=== PATIENT | female | born 1940 | race Caucasian/White ===

== ENCOUNTER 2020-07-22 17:55 | Inpatient (IN) ==
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
[2020-07-22 18:47] LABS: Hemoglobin 16.9 gm/dL (12.5-16.0); Mean Cell Volume 91.9 fl (78-100); Mean Corpuscular Hemoglobin 30.5 pg (27-31); Mean Corpuscular Hgb Conc 33.1 g/dl (32-36); Mean Platelet Volume 9.1 fl (8-12.5); Platelet Count 184 K/mm3 (150-450); Red Blood Count 5.55 M/mm3 (4.2-5.4); Red Cell Distribution Width 12.9 % (11.5-14.0); White Blood Count 17.3 K/mm3 (4.0-10.5)
[2020-07-22 18:51] LABS: Urine Bilirubin Negative (NEGATIVE); Urine Ketone 15 mg/dL (NEGATIVE); Urine Nitrite Negative (NEGATIVE); Urine Protein 15 mg/dL (NEGATIVE); Urine Specific Gravity >=1.030 SP.GR. (1.005-1.010); Urine Urobilinogen Normal (NORMAL)
[2020-07-22 18:56] LABS: Total Cells Counted 100
[2020-07-22 19:02] LABS: Urine Appearance Slightly Cloudy (CLEAR); Urine Bacteria TRACE; Urine Blood 5 /ul (NEGATIVE); Urine Color Yellow; Urine Mucus Many - 3+; Urine WBC 0-5 /hpf (0-5)
[2020-07-22 19:04] LABS: Troponin I Less than 0.017 ng/mL (0.00-0.10)
[2020-07-22 19:07] LABS: ALT 18 U/L (19-67); AST 17 U/L (0-48); Albumin * 3.7 gm/dl (3.4-5.0); Alkaline Phosphatase * 66 U/L (50-170); Anion Gap 15.3 mmol/L (6.8-13.8); BUN/Creatinine Ratio 23.4 (9.0-21.6); Bilirubin, Total 1.3 mg/dL (0.0-1.1); Blood Urea Nitrogen 15 mg/dL (3-23); CK Total * 225 U/L (0-259); Ca. Corrected For Albumin 8.9 mg/dL (8.4-10.2); Carbon Dioxide 21.5 mmol/L (24-32.6); Chloride 104 mmol/L (97-106); Glucose * 148 mg/dL (70-110); Lipase 69 U/L (73-393); Potassium 3.8 mmol/L (3.4-4.6); Sodium 137 mmol/L (132-142); TSH * 0.895 uIU/mL (0.358-3.74); Total Protein 7.2 gm/dL (6.2-8.2)
[2020-07-22 19:08] LABS: Cocaine Ur Negative (NEGATIVE); Urine Barbiturate Negative (NEGATIVE); Urine Benzodiazepines Negative (NEGATIVE); Urine Opiates Negative (NEGATIVE); Urine PCP Negative (NEGATIVE); Urine THC Negative (NEGATIVE)
[2020-07-22 19:24] LABS: Atypical (Reactive) Lymph 1 % (0-2); Band 4 % (0-2.0); Lymphocyte 3 % (20-51); Monocyte 6 % (0-9); Neutrophil 86 % (42-75); Neutrophil # 14.9 K/mm3 (1.3-6.0)
[2020-07-22 19:25] LABS: Platelet Estimate Normal (NORMAL); RBC Morphology Normal (NORMAL)
[2020-07-22] MEDS ORDERED: CLOPIDOGREL BISULFATE 75 MG TABLET PO STA (20:39)
[2020-07-22] MEDS ORDERED: ASPIRIN 81 MG TAB.CHEW PO ONE (20:39)
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
[2020-07-23] MEDS: POTASSIUM CHLORIDE 20 MEQ in DEXTROSE 5%-NORMAL SALINE 990 ML IV SCH (09:37)
[2020-07-23] MEDS ORDERED: FLU VACC QS2020-21(6MOS UP)/PF 60 MCG/0.5 ML SYRINGE IM ONE (10:00)
[2020-07-24] MEDS: POTASSIUM CHLORIDE 20 MEQ in DEXTROSE 5%-NORMAL SALINE 990 ML IV SCH ×2 (01:06→16:46)
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
[2020-07-24] MEDS: ASPIRIN 81 MG TABLET.DR PO SCH (13:35)
[2020-07-24] MEDS: CLOPIDOGREL BISULFATE 75 MG TABLET PO SCH (13:35)
[2020-07-25 07:12] LABS: Albumin * 2.8 gm/dl (3.4-5.0); Anion Gap 11.2 mmol/L (6.8-13.8); BUN/Creatinine Ratio 17.3 (9.0-21.6); Ca. Corrected For Albumin 9.2 mg/dL (8.4-10.2); Calcium * 8.6 mg/dL (7.9-10.9); Carbon Dioxide 23.4 mmol/L (24-32.6); Potassium 3.6 mmol/L (3.4-4.6); Total Protein 6.1 gm/dL (6.2-8.2)
[2020-07-25] MEDS: POTASSIUM CHLORIDE 20 MEQ in DEXTROSE 5%-NORMAL SALINE 990 ML IV SCH (08:15)
[2020-07-25] MEDS: ASPIRIN 81 MG TABLET.DR PO SCH (09:00)
[2020-07-25] MEDS: CLOPIDOGREL BISULFATE 75 MG TABLET PO SCH (09:00)
--- NOTE | 2020-07-25 11:46 | PN ---
Subjective - Date and Time Seen Date: 07/25/20 Time: 09:30 Subjective Narrative: No significant change. She had difficulty swallowing a mechanical soft diet this morning. Objective - Review of Systems Generalized/Overall Review: Denies: Fever EENTM: Reports: Other - difficulty swallowing Respiratory: Denies: Shortness of Breath Cardiac: Denies: Chest Pain, Edema Abdominal: Reports: No Symptoms Reported Genitourinary Symptoms: Reports: No Symptoms Reported Neurological: Reports: Weakness - right sided - Vitals Vitals: Last Vital Signs Temp 36.9 C 07/25/20 10:39 Pulse 64 07/25/20 10:39 Resp 18 07/25/20 10:39 BP 110/68 07/25/20 10:39 Pulse Ox 92 L 07/25/20 01:42 - Abnormal Lab Findings Abnormal Lab Findings: Abnormal Lab Results 07/25/20 Range/Units 06:45 Carbon Dioxide 23.4 L (24-32.6) mmol/L Random Glucose 139 H (70-110) mg/dL Total Bilirubin 2.0 H (0.0-1.1) mg/dL Total Protein 6.1 L (6.2-8.2) gm/dL Albumin 2.8 L (3.4-5.0) gm/dl - Exam Constitutional: Present: Alert, Cooperative, Other - left scleral injection. sitting up in chair, Elderly Respiratory: Present: lungs clear, normal breath sounds Cardiovascular/Chest: Present: regular rate, rhythm Extremity: Absent: lower extremity edema Neurologic: Present: facial droop - right, motor weakness - right arm, other - speech very slurred, but somewhat improved from yesterday Eye contact: Present: good eye contact Assessment/Plan Plan Narrative: Would like to obtain an MRI to see the extent of her CVA, but unable to get info from family regarding potential implanted medical devices or clips that may interfere. Discussed with robotic technician, and they would need this info to obtain the scan. Will not obtain full body xrays to look for metal. The info from the MRI would let me know the extent, but will not filter changer. Continue aspirin, plavix, and will add 20 mg atorvastatin. She will require placement after DC, as her neurologic deficits are too much for her to live alone. She has dysphagia, some of which is chronic after a surgery, dysphasia, and limited use of her right arm. Continue speech therapy, PT, OT. - Problems/Diagnosis (1) Cerebrovascular accident Problem: Acute Qualifiers: Precerebral and cerebral artery: middle cerebral artery Laterality of affected vessel: left (2) Right sided weakness Problem: Acute (3) Dysphagia Problem: Chronic
[2020-07-25] MEDS: ROSUVASTATIN CALCIUM 20 MG TABLET PO SCH (20:08)
[2020-07-26] MEDS: POTASSIUM CHLORIDE 20 MEQ in DEXTROSE 5%-NORMAL SALINE 990 ML IV SCH (00:20)
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
[2020-07-26] MEDS: CLOPIDOGREL BISULFATE 75 MG TABLET PO SCH (08:59)
[2020-07-26] MEDS: ASPIRIN 81 MG TABLET.DR PO SCH (08:59)
[2020-07-26] MEDS: ROSUVASTATIN CALCIUM 20 MG TABLET PO SCH (20:36)
[2020-07-27] MEDS: CLOPIDOGREL BISULFATE 75 MG TABLET PO SCH (08:48)
[2020-07-27] MEDS: ASPIRIN 81 MG TABLET.DR PO SCH (08:48)
--- NOTE | 2020-07-27 09:26 | DS ---
(1) Cerebrovascular accident Problem: Acute Qualifiers: Precerebral and cerebral artery: middle cerebral artery Laterality of affected vessel: left (2) Right sided weakness Problem: Acute (3) Dysphagia Problem: Chronic Date of Discharge:: 07/27/20 Hospital Course: Patient with unknown past medical history was found down and brought to the ER, where CT imaging showed "Loss of diego-white differentiation at the left insula and left lentiform nucleus consistent with an acute left MCA vascular territory infarct." Offered transfer to stroke center, but family declined per the ERP. She has left-sided facial droop and right-sided arm and leg weakness. She was unable to swallow in the ER. Lab work shows an elevated white blood cell count of 17.3. CK was not elevated. Renal function is normal. Urine negative for leukocyte esterase or nitrates, culture pending. UDS negative, Covid negative. Vitals have been normal. Blood pressure initially 180/79, currently 147/68. She reportedly smokes 2 packs a day and drinks alcohol daily. Ammonia level was normal. Would like to obtain an MRI to visualize the extent of her CVA, but we do not know if she has MRI compatible metal devices. This will not change management specialist, however. She does appear to be regaining some strength and function in her right arm, and speech is slightly more clear, but still slurred. She is right handed. Speech eval done, which recommended mechanical soft diet and nectar thick liquids, but she had difficulty with the mechanical soft diet. She is swallowing a pureed diet. She lives alone, and is not able to care for herself since her stroke. She does not have family that lives close. Family reports she does not usually go to physicians, drinks alcohol daily, and smokes 2 ppd. She did not show signs of withdrawal during her stay. Family friend states that the patient's son of leukemia about 7 years ago, and she has been significantly depressed since then. This friend also states that Christina had some swallowing difficulty at baseline, after a throat surgery. Continue aspirin, plavix, and rosuvastatin. She is accepted at [facility] inpatient rehab. Procedures Performed: none Results and Findings: Pending Mircobiology Results 07/22/20 18:42 Blood Blood Culture - Preliminary NO GROWTH AFTER 48 HOURS 07/22/20 18:40 Blood Blood Culture - Preliminary NO GROWTH AFTER 48 HOURS Lab Pending Results 07/22/20 18:00: Urine Color Yellow, Urine Appearance Slightly cloudy, Urine pH 6.0, Ur Specific [place] >=1.030, Urine Protein 15 H, Urine Glucose (UA) Negative, Urine Ketones 15, Urine Blood 5 H, Urine Nitrate Negative, Urine Bilirubin Negative, Prot Sulfosalicylic Acd 1+, Urine Urobilinogen Normal, Ur Leukocyte Esterase Negative, Urine RBC 5-10 H, Urine WBC 0-5, Ur Epithelial Cells 0-5, Urine Bacteria Trace, Urine Mucus Many - 3+ H, Urine Culture Comments Culture to follow 07/22/20 18:00: Urine Opiates Screen Negative, Barbiturate Screen Negative, Ur Phencyclidine Scrn Negative, Urine Amphetamine Negative, U Benzodiazepines Scrn Negative, Urine Cocaine Screen Negative, Urine Marijuana (THC) Negative 07/22/20 18:31: SARS-CoV-2 (PCR) Not detected 07/22/20 18:40: WBC 17.3 H, RBC 5.55 H, Hgb 16.9 H, Hct 51.0 H, MCV 91.9, MCH 30.5, MCHC 33.1, RDW 12.9, Plt Count 184, MPV 9.1, Neutrophils % (Manual) 86 H, Band Neuts % (Manual) 4 H, Lymphocytes % (Manual) 3 L, Monocytes % (Manual) 6, Neutrophils # (Manual) 14.9 H, Lymphocytes # (Manual) 0.5 L, Monocytes # (Manual) 1.0, Atypic/Reactive Lymphs 1, Platelet Estimate Normal, RBC Morphology Normal 07/22/20 18:40: Sodium 137, Plasma Sodium 138, Potassium 3.8, Chloride 104, Carbon Dioxide 21.5 L, Anion Gap 15.3 H, BUN 15, Creatinine 0.64, Est GFR (Non- Af Amer) 96, BUN/Creatinine Ratio 23.4 H, Random Glucose 148 H, Calcium 9.0, Calcium Adj for Albumin 8.9, Total Bilirubin 1.3 H, AST 17, ALT 18 L, Alkaline Phosphatase 66, Creatine Kinase 225, Troponin I Less than 0.017, Total Protein 7.2, Albumin 3.7, Lipase 69 L, TSH 0.895, Acetaminophen Less than 0.2 L, Ethyl Alcohol Less than 3.0 07/22/20 18:40: Lactic Acid, Venous 1.7 07/22/20 18:40: Ammonia Less than 17.0 07/25/20 06:45: Sodium 136, Plasma Sodium 137, Potassium 3.6, Chloride 105, Carbon Dioxide 23.4 L, Anion Gap 11.2, BUN 9, Creatinine 0.52, Est GFR (Non-Af Amer) 122 D, BUN/Creatinine Ratio 17.3, Random Glucose 139 H, Calcium 8.6, Calcium Adj for Albumin 9.2, Total Bilirubin 2.0 H, AST 24, ALT 23, Alkaline Phosphatase 60, Total Protein 6.1 L, Albumin 2.8 L Discharge Location: [facility] Disposition: Inpatient Rehab Facility Condition: Poor Discharge Activity: Activity as tolerated Discharge Diet: Other - pureed and nectar thick liquids Additional Patient Instructions (free text): [facility] Inpatient Rehab- PT, OT, Speech therapy to evaluate and treat. Complete Home Medications List: Complete Home Medication List: Aspirin [Aspirin Enteric Coated] 81 mg PO DAILY tablet. 07/27/20 Clopidogrel Bisulfate [Plavix] 75 mg PO DAILY tablet 07/27/20 Rosuvastatin Calcium [Crestor] 20 mg PO HS tablet 07/27/20 Forms: Patient Portal Registration
[2020-07-27 10:44] VITALS: BP 148/75
== END 2020-07-27 10:37 | disposition short-term general hospital (02) | DRG 65 ==
LOC: ER 17:55 → MS 21:35
PROVIDERS: ADMIT Family Medicine; ATTEND Family Medicine
DX: R47.81 Slurred speech; G81.91 Hemiplegia, unspecified affecting right dominant side; R13.10 Dysphagia, unspecified; Z72.0 Tobacco use; I63.89 Other cerebral infarction; Z72.89 Other problems related to lifestyle